=== PATIENT | male | born 1965 | race Caucasian/White ===

== ENCOUNTER 2018-07-22 08:52 | Inpatient (IN) | payer MEDICAID, OTHER ==
[~2018-07-22] VITALS: Ht 180.3 cm; Wt 66.7 kg
[2018-07-22] MEDS ORDERED: KETOROLAC 30 MG/1 ML IVPush ONE (09:30)
[2018-07-22] MEDS ORDERED: MORPHINE SULFATE 4 MG/ML, 1ML IVPush PRN (09:30)
[2018-07-22 09:32] LABS: BASOPHILS % (AUTO) 1 % (0-1); EOSINOPHILS # (AUTO) 0.58 x10^3/uL (0-0.4); EOSINOPHILS % (AUTO) 7 % (1-7); LYMPHOCYTES # (AUTO) 1.63 x10^3/uL (1-3.4); LYMPHOCYTES % (AUTO) 20 % (22-44); MD NO; MEAN CORPUSCULAR HEMOGLOBIN 29.7 pg (27.5-34.5); MEAN CORPUSCULAR HGB CONC 32.7 g/dL (33.2-36.2); MEAN CORPUSCULAR VOLUME 90.7 fL (81-97); MEAN PLATELET VOLUME 7.9 fL (7.4-10.4); MONOCYTES # (AUTO) 0.85 x10^3/uL (0.2-0.8); MONOCYTES % (AUTO) 10 % (2-9); NEUTROPHILS # (AUTO) 4.99 x10^3/uL (1.8-6.8); NEUTROPHILS % (AUTO) 61 % (42-75); PLATELET COUNT 274 x10^3/uL (130-400); RED BLOOD COUNT 4.97 x10^6/uL (4.38-5.82); RED CELL DISTRIBUTION WIDTH 13.9 % (9.4-14.8)
[2018-07-22 09:41] LABS: INTERNATIONAL NORMALIZED RATIO 0.91 (0.93-1.1); PROTHROMBIN TIME 9.6 Seconds (9.6-11.5)
[2018-07-22 09:42] LABS: ALBUMIN 3.4 g/dL (3.4-5.0); ANION GAP 3 mmol/L (5-15); CALCIUM 8.6 mg/dL (8.5-10.1); CHLORIDE 108 mmol/L (98-107); CREATININE 0.77 mg/dL (0.7-1.3)
[2018-07-22] MEDS ORDERED: KETOROLAC 30 MG/1 ML ONE (09:49)
[2018-07-22] MEDS ORDERED: MORPHINE SULFATE 4 MG/ML, 1ML ONE (09:50)
--- NOTE | 2018-07-22 10:00 | NUR ---
MEDICATED FOR PAIN.
[2018-07-22] MEDS ORDERED: OMNIPAQUE 350 MG/ML, 100ML BOTTLE ONE (10:31)
--- NOTE | 2018-07-22 10:34 | NUR ---
PT STATES NO PAIN SINCE MEDICATED FOR SAME. RESTING QUIETLY
--- NOTE | 2018-07-22 12:11 | NUR ---
NO PAIN AT THIS TIME. AWARE OF CT RESULTS AND INTENTION TO ADMIT TO HOSPITAL
[2018-07-22] MEDS ORDERED: LIDOCAINE GEL 2%, 5ML TP ONE (12:30)
--- NOTE | 2018-07-22 12:40 | NUR ---
ENT AT BEDSIDE VISUALIZING THROAT WITH LARYNGOSCOPE. PLAN OF CARE FOR BIOPSY TOMORROW DISCUSSED.
--- NOTE | 2018-07-22 12:47 | NUR ---
HOSPITALIST AT BEDSIDE
[2018-07-22 13:30] LABS: BASOPHILS # (AUTO) 0.04 x10^3/uL (0-0.1); BASOPHILS % (AUTO) 1 % (0-1); EOSINOPHILS # (AUTO) 0.48 x10^3/uL (0-0.4); EOSINOPHILS % (AUTO) 6 % (1-7); LYMPHOCYTES # (AUTO) 1.72 x10^3/uL (1-3.4); LYMPHOCYTES % (AUTO) 22 % (22-44); MD NO; MEAN CORPUSCULAR HEMOGLOBIN 30.5 pg (27.5-34.5); MEAN CORPUSCULAR VOLUME 89.8 fL (81-97); MEAN PLATELET VOLUME 7.7 fL (7.4-10.4); MONOCYTES # (AUTO) 0.65 x10^3/uL (0.2-0.8); MONOCYTES % (AUTO) 9 % (2-9); NEUTROPHILS # (AUTO) 4.78 x10^3/uL (1.8-6.8); NEUTROPHILS % (AUTO) 62 % (42-75); PLATELET COUNT 272 x10^3/uL (130-400); RED BLOOD COUNT 4.62 x10^6/uL (4.38-5.82); RED CELL DISTRIBUTION WIDTH 13.9 % (9.4-14.8)
[2018-07-22] MEDS ORDERED: ENALAPRILAT 1.25 MG/ML, 2ML IVPush PRN (13:30)
[2018-07-22] MEDS ORDERED: ONDANSETRON 2MG/ML, 2ML IVPush PRN (13:30)
--- NOTE | 2018-07-22 13:40 | NUR ---
RPT TO BERNARDINO TO
[2018-07-22] MEDS: KETOROLAC 30 MG/1 ML IVPush SCH ×2 (15:11→22:04)
[2018-07-22] MEDS: NICOTINE 21 MG/24 HR PATCH.TD24 TD SCH (15:13)
--- NOTE | 2018-07-22 15:22 | NUR ---
REC CHOPPED/THIN; Swallow precaution sheet posted at bedside Addendum: 07/23/18 at [address] Amended: Links added.
[2018-07-22] MEDS: SODIUM CHLORIDE 0.9% 1,000 ML IV SCH ×2 (16:06→22:05)
[2018-07-22 20:04] VITALS: BP 132/60
[2018-07-23 01:37] VITALS: BP 116/75
[2018-07-23] MEDS: KETOROLAC 30 MG/1 ML IVPush SCH ×4 (02:46→21:10)
[2018-07-23 05:10] LABS: CHLORIDE 109 mmol/L (98-107)
[2018-07-23 05:17] LABS: ALANINE AMINOTRANSFERASE 23 U/L (12-78); ALBUMIN 3.1 g/dL (3.4-5.0); ALKALINE PHOSPHATASE 84 U/L (45-117); ANION GAP 4 mmol/L (5-15); BILIRUBIN,TOTAL 0.5 mg/dL (0.2-1.0); CALCIUM 8.2 mg/dL (8.5-10.1); CREATININE 0.77 mg/dL (0.7-1.3); TOTAL PROTEIN 6.6 g/dL (6.4-8.2)
[2018-07-23] MEDS ORDERED: EPINEPHRINE TOPICAL SOLN 1 MG/ML, 30ML ONE (06:51)
[2018-07-23] MEDS ORDERED: FENTANYL PF 250 MCG/5ML ONE (06:56)
[2018-07-23] MEDS ORDERED: MIDAZOLAM 1 MG/ML, 2ML ONE (06:56)
[2018-07-23] MEDS ORDERED: FENTANYL PF 100 MCG/2ML IV PRN (07:30)
[2018-07-23] MEDS ORDERED: ONDANSETRON 2MG/ML, 2ML IV PRN (07:30)
[2018-07-23] MEDS ORDERED: HYDROmorphone 2 MG/ML, 1ML IVPush PRN (07:30)
[2018-07-23] MEDS ORDERED: ACETAMINOPHEN 325 MG TABLET PO PRN (07:30)
[2018-07-23] MEDS ORDERED: MEPERIDINE/PF 25MG/0.5ML IVPush PRN (07:30)
[2018-07-23] MEDS ORDERED: LABETALOL 5MG/ML, 20ML IV PRN (07:30)
[2018-07-23] MEDS ORDERED: OXYcodone 5 MG/5 ML ORAL.SOL UDC PO PRN (07:30)
[2018-07-23] MEDS ORDERED: PROPOFOL 10 MG/ML, 20ML ONE (07:34)
[2018-07-23 08:54] VITALS: BP 104/78
[2018-07-23 12:09] VITALS: BP 111/77
[2018-07-23] MEDS: NICOTINE 21 MG/24 HR PATCH.TD24 TD SCH (14:16)
[2018-07-23] MEDS: SODIUM CHLORIDE 0.9% 1,000 ML IV SCH (14:16)
[2018-07-23 19:16] VITALS: BP 124/86
[2018-07-23] MEDS ORDERED: HYDROmorphone 2 MG/ML, 1ML ONE (21:57)
[2018-07-23] MEDS: HYDROmorphone 1 MG/ML, 1ML IV PRN (22:00)
[2018-07-24 01:08] VITALS: BP 126/79
[2018-07-24] MEDS ORDERED: HYDROmorphone 2 MG/ML, 1ML ONE ×3 (02:47→10:56)
[2018-07-24] MEDS: KETOROLAC 30 MG/1 ML IVPush SCH ×2 (02:54→08:16)
[2018-07-24] MEDS: SODIUM CHLORIDE 0.9% 1,000 ML IV SCH ×2 (02:54→10:52)
[2018-07-24] MEDS: HYDROmorphone 1 MG/ML, 1ML IV PRN ×2 (02:55→10:58)
[2018-07-24 08:00] VITALS: BP 128/83
[2018-07-24] MEDS ORDERED: ACET-1757 PO (11:34)
[2018-07-24] MEDS ORDERED: IBUP-1221 PO (11:34)
[2018-07-24] MEDS ORDERED: NICO-487 TD (11:34)
[2018-07-24] MEDS ORDERED: ARIP10TA33 PO (11:35)
[2018-07-24] MEDS ORDERED: TRAZ50TA66 PO (11:35)
[2018-07-24 12:10] VITALS: BP 101/69
== END 2018-07-24 14:58 | disposition home or self-care (01) | DRG 146 ==
LOC: ED 10:05 → SUATTDRO 12:35 → EDIP 13:12 → 3NW 14:37
PROVIDERS: ADMIT Internal Medicine; ATTEND Internal Medicine
PROC: 0CJS8ZZ Inspection of Larynx, Via Natural or Artificial Opening Endoscopic (ICD-10-PCS; principal; 2018-07-22)
PROC: 0CBM8ZX Excision of Pharynx, Via Natural or Artificial Opening Endoscopic, Diagnostic (ICD-10-PCS; 2018-07-23 07:30)
DX: C01 Malignant neoplasm of base of tongue (principal); J96.00 Acute respiratory failure, unspecified whether with hypoxia or hypercapnia; R13.10 Dysphagia, unspecified; B19.20 Unspecified viral hepatitis C without hepatic coma; F20.9 Schizophrenia, unspecified; Z87.891 Personal history of nicotine dependence; Z91.14 Patient's other noncompliance with medication regimen
CPT/HCPCS: 36415; 70491; 80048; 80053; 82040; 83735; 84100; 85014; 85018; 85025; 85610; 85730; 88305; 88342; 93005; 96374; 96375; 99285; G0378; J1170; J1885; J2250; J2704; J3010; Q9967; J7030

== ENCOUNTER 2018-07-28 07:55 | Inpatient (IN) | payer MEDICAID, OTHER ==
[~2018-07-28] VITALS: Ht 177.8 cm; Wt 64.3 kg
[~2018-07-28 07:55] MED LIST: ACET-1757 PO; ARIP10TA33 PO; IBUP-1221 PO; NICO-487 TD; TRAZ50TA66 PO
--- NOTE | 2018-07-28 08:27 | NUR ---
Pt to room from [facility], ambulatory with steady gait.
--- NOTE | 2018-07-28 08:39 | NUR ---
First contact with pt. Pt c/o swelling and pain on L side of neck x8 days. Pt speaking in full sentences, resp even and unlabored, ANNETTAN.
[2018-07-28] MEDS ORDERED: SODIUM CHLORIDE FLUSH 10ML SYR IVF ONE (09:00)
--- NOTE | 2018-07-28 09:29 | NUR ---
Pt positioned for comfort in bed with pillow and warm blanket. Pt resting in bed, watching TV, NADN, denies other needs.
[2018-07-28 09:30] LABS: BASOPHILS # (AUTO) 0.07 x10^3/uL (0-0.1); BASOPHILS % (AUTO) 1 % (0-1); EOSINOPHILS # (AUTO) 0.21 x10^3/uL (0-0.4); EOSINOPHILS % (AUTO) 2 % (1-7); LYMPHOCYTES # (AUTO) 1.37 x10^3/uL (1-3.4); LYMPHOCYTES % (AUTO) 14 % (22-44); MD NO; MEAN CORPUSCULAR HEMOGLOBIN 29.9 pg (27.5-34.5); MEAN CORPUSCULAR HGB CONC 33.6 g/dL (33.2-36.2); MEAN CORPUSCULAR VOLUME 88.9 fL (81-97); MEAN PLATELET VOLUME 8.2 fL (7.4-10.4); MONOCYTES # (AUTO) 0.82 x10^3/uL (0.2-0.8); MONOCYTES % (AUTO) 8 % (2-9); NEUTROPHILS # (AUTO) 7.48 x10^3/uL (1.8-6.8); NEUTROPHILS % (AUTO) 75 % (42-75); PLATELET COUNT 253 x10^3/uL (130-400); RED BLOOD COUNT 5.05 x10^6/uL (4.38-5.82); RED CELL DISTRIBUTION WIDTH 13.8 % (9.4-14.8)
[2018-07-28 09:39] LABS: INTERNATIONAL NORMALIZED RATIO 0.95 (0.93-1.1)
[2018-07-28 09:41] LABS: ALANINE AMINOTRANSFERASE 26 U/L (12-78); ALBUMIN 3.6 g/dL (3.4-5.0); ANION GAP 5 mmol/L (5-15); CALCIUM 9.2 mg/dL (8.5-10.1); CHLORIDE 103 mmol/L (98-107); CREATININE 1.18 mg/dL (0.7-1.3)
[2018-07-28 09:43] LABS: ALKALINE PHOSPHATASE 90 U/L (45-117); BILIRUBIN,TOTAL 0.6 mg/dL (0.2-1.0)
--- NOTE | 2018-07-28 10:18 | NUR ---
Pt req medication for heartburn. Discussed with Dr. Saucedo. Orders received for pepcid IVP.
[2018-07-28] MEDS ORDERED: FAMOTIDINE 20 MG/2 ML ONE (10:19)
--- NOTE | 2018-07-28 10:23 | NUR ---
Pt medicated per MAR, denies other needs.
[2018-07-28] MEDS ORDERED: SODIUM CHLORIDE 0.9% 1,000 ML IV ONE ×2 (10:26→11:07)
--- NOTE | 2018-07-28 10:27 | NUR ---
paged dr nagy digital operations analyst for dr pizano for dr grider
[2018-07-28] MEDS ORDERED: FAMOTIDINE 20 MG/2 ML IVPush ONE (10:30)
--- NOTE | 2018-07-28 10:30 | NUR ---
Pt requesting jello to eat. Dr. Saucedo updated. Pt to remain NPO at this time. Pt updated on this.
--- NOTE | 2018-07-28 11:16 | NUR ---
Pt resting in bed with eyes closed, resp even and unlabored, NADN.
[2018-07-28] MEDS ORDERED: SODIUM CHLORIDE FLUSH 10ML SYR IVF PRN (11:30)
--- NOTE | 2018-07-28 11:49 | NUR ---
Report called to Barbara TO on oncology. Floor ready for pt transport.
--- NOTE | 2018-07-28 12:36 | NUR ---
REC NPO; plan for instrumental swallow assessment tomorrow Addendum: 07/28/18 at [address] Amended: Links added.
[2018-07-28] MEDS ORDERED: MORPHINE SULFATE 4 MG/ML, 1ML ONE (12:55)
[2018-07-28] MEDS: morphine SULFATE 10 MG/ML, 1ML IVPush PRN ×2 (12:58→13:03)
[2018-07-28] MEDS ORDERED: DOCUSATE 100 MG CAPSULE PO PRN (13:00)
[2018-07-28] MEDS ORDERED: ACETAMINOPHEN 325 MG TABLET PO PRN (13:00)
[2018-07-28 13:06] VITALS: BP 111/75
[2018-07-28] MEDS ORDERED: HYDROmorphone 2 MG/ML, 1ML ONE ×2 (14:36→20:32)
[2018-07-28] MEDS: HYDROmorphone 1 MG/ML, 1ML IV PRN ×2 (14:39→20:36)
[2018-07-28 20:28] VITALS: BP 98/67
[2018-07-28] MEDS: ENOXAPARIN 40 MG/0.4 ML SQ SCH (20:41)
[2018-07-28] MEDS: SODIUM CHLORIDE 0.9% 1,000 ML IV SCH (21:20)
[2018-07-29 01:22] VITALS: BP 115/66
[2018-07-29 01:55] LABS: BASOPHILS # (AUTO) 0.02 x10^3/uL (0-0.1); BASOPHILS % (AUTO) 0 % (0-1); EOSINOPHILS % (AUTO) 1 % (1-7); LYMPHOCYTES # (AUTO) 1.06 x10^3/uL (1-3.4); LYMPHOCYTES % (AUTO) 10 % (22-44); MD NO; MEAN CORPUSCULAR HEMOGLOBIN 30.2 pg (27.5-34.5); MEAN CORPUSCULAR HGB CONC 33.9 g/dL (33.2-36.2); MEAN CORPUSCULAR VOLUME 89.2 fL (81-97); MONOCYTES # (AUTO) 0.64 x10^3/uL (0.2-0.8); MONOCYTES % (AUTO) 6 % (2-9); NEUTROPHILS # (AUTO) 8.69 x10^3/uL (1.8-6.8); NEUTROPHILS % (AUTO) 83 % (42-75); PLATELET COUNT 234 x10^3/uL (130-400); RED BLOOD COUNT 4.49 x10^6/uL (4.38-5.82); RED CELL DISTRIBUTION WIDTH 13.8 % (9.4-14.8)
[2018-07-29] MEDS ORDERED: HYDROmorphone 2 MG/ML, 1ML ONE ×6 (02:01→22:53)
[2018-07-29] MEDS: PIPERACILLIN/TAZO/PMX 3.375GM 50 ML IV SCH ×4 (02:03→19:45)
[2018-07-29] MEDS: HYDROmorphone 1 MG/ML, 1ML IV PRN ×6 (02:03→22:58)
[2018-07-29 02:06] LABS: MICROSCOPIC NOT IND
[2018-07-29 02:07] LABS: ANION GAP 6 mmol/L (5-15); CALCIUM 8.7 mg/dL (8.5-10.1); CHLORIDE 109 mmol/L (98-107); CREATININE 0.93 mg/dL (0.7-1.3)
[2018-07-29] MEDS: SODIUM CHLORIDE 0.9% 1,000 ML IV SCH ×3 (06:12→22:58)
[2018-07-29 07:59] VITALS: BP 109/66
[2018-07-29 13:57] VITALS: BP 112/76
[2018-07-29] MEDS: ENOXAPARIN 40 MG/0.4 ML SQ SCH (19:45)
[2018-07-29 21:14] VITALS: BP 107/58
[2018-07-30] MEDS: PIPERACILLIN/TAZO/PMX 3.375GM 50 ML IV SCH ×4 (01:41→20:20)
[2018-07-30 01:43] VITALS: BP 129/65
[2018-07-30] MEDS ORDERED: HYDROmorphone 2 MG/ML, 1ML ONE ×3 (02:35→10:54)
[2018-07-30] MEDS: HYDROmorphone 1 MG/ML, 1ML IV PRN ×3 (02:37→10:59)
[2018-07-30 05:36] LABS: INTERNATIONAL NORMALIZED RATIO 1.02 (0.93-1.1); PROTHROMBIN TIME 10.7 Seconds (9.6-11.5)
[2018-07-30 05:37] LABS: BASOPHILS # (AUTO) 0.04 x10^3/uL (0-0.1); BASOPHILS % (AUTO) 1 % (0-1); EOSINOPHILS # (AUTO) 0.26 x10^3/uL (0-0.4); EOSINOPHILS % (AUTO) 3 % (1-7); LYMPHOCYTES # (AUTO) 1.43 x10^3/uL (1-3.4); LYMPHOCYTES % (AUTO) 19 % (22-44); MD NO; MEAN CORPUSCULAR HEMOGLOBIN 30.5 pg (27.5-34.5); MEAN CORPUSCULAR HGB CONC 33.9 g/dL (33.2-36.2); MEAN CORPUSCULAR VOLUME 89.9 fL (81-97); MEAN PLATELET VOLUME 8.2 fL (7.4-10.4); MONOCYTES # (AUTO) 0.67 x10^3/uL (0.2-0.8); MONOCYTES % (AUTO) 9 % (2-9); NEUTROPHILS # (AUTO) 5.31 x10^3/uL (1.8-6.8); NEUTROPHILS % (AUTO) 69 % (42-75); PLATELET COUNT 196 x10^3/uL (130-400); RED BLOOD COUNT 4.22 x10^6/uL (4.38-5.82); RED CELL DISTRIBUTION WIDTH 13.6 % (9.4-14.8)
[2018-07-30 05:41] LABS: ALBUMIN 2.9 g/dL (3.4-5.0); ANION GAP 6 mmol/L (5-15); CALCIUM 8.4 mg/dL (8.5-10.1); CHLORIDE 108 mmol/L (98-107)
[2018-07-30 06:00] LABS: ALANINE AMINOTRANSFERASE 20 U/L (12-78); ALKALINE PHOSPHATASE 67 U/L (45-117); BILIRUBIN,TOTAL 1.4 mg/dL (0.2-1.0); CREATININE 0.96 mg/dL (0.7-1.3); TOTAL PROTEIN 6.7 g/dL (6.4-8.2)
[2018-07-30 07:19] VITALS: BP 105/61
[2018-07-30] MEDS: SODIUM CHLORIDE 0.9% 1,000 ML IV SCH ×3 (09:00→20:20)
[2018-07-30] MEDS ORDERED: CEFAZOLIN 1,000 MG ONE (09:10)
[2018-07-30] MEDS ORDERED: PROPOFOL 10 MG/ML, 50ML ONE (09:10)
[2018-07-30] MEDS: OXYcodone/APAP 10/325MG TABLET PO PRN ×3 (12:43→21:47)
[2018-07-30 13:25] VITALS: BP 104/67
--- NOTE | 2018-07-30 15:00 | NUR ---
Jevity 1.5 goal: 55 ml/hr Addendum: 07/30/18 at [address] Amended: Links added.
[2018-07-30] MEDS ORDERED: GADOBUTROL 7.5 MMOL/7.5 ML PFS ONE (16:42)
[2018-07-30 19:38] VITALS: BP 112/63
[2018-07-30] MEDS: ENOXAPARIN 40 MG/0.4 ML SQ SCH (20:20)
[2018-07-31 00:25] VITALS: BP 117/61
[2018-07-31] MEDS: PIPERACILLIN/TAZO/PMX 3.375GM 50 ML IV SCH ×4 (02:12→19:44)
[2018-07-31] MEDS: OXYcodone/APAP 10/325MG TABLET PO PRN (02:13)
[2018-07-31] MEDS: SODIUM CHLORIDE 0.9% 1,000 ML IV SCH ×3 (02:13→23:00)
[2018-07-31] MEDS: morphine SULFATE 10 MG/ML, 1ML IVPush PRN ×6 (03:27→21:03)
[2018-07-31] MEDS ORDERED: morphine SULFATE 10 MG/ML, 1ML IVPush PRN (03:30)
[2018-07-31 06:45] VITALS: BP 111/68
[2018-07-31 14:10] VITALS: BP 110/69
[2018-07-31 18:51] VITALS: BP 127/74
[2018-07-31] MEDS: ENOXAPARIN 40 MG/0.4 ML SQ SCH (19:44)
[2018-08-01] MEDS: morphine SULFATE 10 MG/ML, 1ML IVPush PRN ×5 (00:07→19:57)
[2018-08-01] MEDS: SODIUM CHLORIDE 0.9% 1,000 ML IV SCH ×3 (00:29→18:11)
[2018-08-01 00:45] VITALS: BP 116/79
[2018-08-01] MEDS: PIPERACILLIN/TAZO/PMX 3.375GM 50 ML IV SCH ×2 (02:00→08:18)
[2018-08-01 06:57] VITALS: BP 111/72
[2018-08-01] MEDS: OXYcodone/APAP 10/325MG TABLET PO PRN ×2 (08:18→21:19)
[2018-08-01] MEDS ORDERED: methylPREDNISolone SOD SUCC 125 MG/2 ML ONE (10:27)
[2018-08-01] MEDS ORDERED: methylPREDNISolone SOD SUCC 125 MG/2 ML IVPush ONE (10:30)
[2018-08-01] MEDS ORDERED: ALBUTEROL/IPRATROPIUM 2.5MG/0.5MG, 3 ML NPPB SCH (11:00)
[2018-08-01 11:44] VITALS: BP 111/66
[2018-08-01] MEDS ORDERED: ALBUTEROL/IPRATROPIUM 2.5MG/0.5MG, 3 ML NPPB PRN (17:30)
[2018-08-01] MEDS: AMOXICILLIN/CLAV 875-125MG TABLET PO SCH (18:11)
[2018-08-01 19:18] VITALS: BP 124/85
[2018-08-01] MEDS: ENOXAPARIN 40 MG/0.4 ML SQ SCH (19:57)
[2018-08-01] MEDS ORDERED: OMNIPAQUE 350 MG/ML, 100ML BOTTLE ONE (22:09)
[2018-08-02] MEDS: morphine SULFATE 10 MG/ML, 1ML IVPush PRN ×2 (00:14→11:04)
[2018-08-02 00:57] VITALS: BP 113/79
[2018-08-02] MEDS: OXYcodone/APAP 10/325MG TABLET PO PRN (03:09)
[2018-08-02] MEDS: AMOXICILLIN/CLAV 875-125MG TABLET PO SCH (04:02)
[2018-08-02] MEDS: SODIUM CHLORIDE 0.9% 1,000 ML IV SCH ×2 (04:02→11:00)
[2018-08-02 05:18] LABS: BASOPHILS # (AUTO) 0.04 x10^3/uL (0-0.1); BASOPHILS % (AUTO) 1 % (0-1); EOSINOPHILS # (AUTO) 0.42 x10^3/uL (0-0.4); EOSINOPHILS % (AUTO) 7 % (1-7); LYMPHOCYTES # (AUTO) 1.16 x10^3/uL (1-3.4); LYMPHOCYTES % (AUTO) 18 % (22-44); MD NO; MEAN CORPUSCULAR HEMOGLOBIN 29.9 pg (27.5-34.5); MEAN CORPUSCULAR HGB CONC 33.3 g/dL (33.2-36.2); MEAN CORPUSCULAR VOLUME 89.9 fL (81-97); MEAN PLATELET VOLUME 8.7 fL (7.4-10.4); MONOCYTES # (AUTO) 0.58 x10^3/uL (0.2-0.8); MONOCYTES % (AUTO) 9 % (2-9); NEUTROPHILS # (AUTO) 4.29 x10^3/uL (1.8-6.8); NEUTROPHILS % (AUTO) 66 % (42-75); PLATELET COUNT 209 x10^3/uL (130-400); RED CELL DISTRIBUTION WIDTH 13.5 % (9.4-14.8)
[2018-08-02 05:40] LABS: ANION GAP 6 mmol/L (5-15); CALCIUM 7.9 mg/dL (8.5-10.1); CHLORIDE 109 mmol/L (98-107); CREATININE 0.65 mg/dL (0.7-1.3)
[2018-08-02 07:23] VITALS: BP 119/73
[2018-08-02 13:22] VITALS: BP 138/73
[2018-08-02] MEDS ORDERED: OXYC-432 PO (14:23)
[2018-08-02] MEDS ORDERED: DOCU-131 PO (14:23)
[2018-08-02] MEDS ORDERED: AMOX1TAB12 PO (14:23)
== END 2018-08-02 14:34 | disposition home or self-care (01) | DRG 146 ==
LOC: ED 09:00 → 3NW 11:49
PROVIDERS: ADMIT Internal Medicine Infectious Disease; ATTEND Internal Medicine Infectious Disease
PROC: 0DH63UZ Insertion of Feeding Device into Stomach, Percutaneous Approach (ICD-10-PCS; principal; 2018-07-30 09:00)
DX: C10.9 Malignant neoplasm of oropharynx, unspecified (principal); E43 Unspecified severe protein-calorie malnutrition; R13.12 Dysphagia, oropharyngeal phase; B18.2 Chronic viral hepatitis C; M19.90 Unspecified osteoarthritis, unspecified site; F17.200 Nicotine dependence, unspecified, uncomplicated; F20.9 Schizophrenia, unspecified; K14.9 Disease of tongue, unspecified; Z51.5 Encounter for palliative care; Z59.0 Homelessness; Z91.14 Patient's other noncompliance with medication regimen; Z85.818 Personal history of malignant neoplasm of other sites of lip, oral cavity, and pharynx; Z68.20 Body mass index [BMI] 20.0-20.9, adult
CPT/HCPCS: 36415; 74230; 87806; 99285; J3490; 70543; 71045; 71046; 71275; 76705; 80048; 80053; 80074; 81003; 83735; 84100; 85025; 85610; 85730; 86480; 87040; 87070; 87205; 87521; 87522; 93005; 96374; A9585; B4087; G0378; J0690; J1170; J1650; J2543; J2704; Q9967; G0475; J2270; J7030

== ENCOUNTER 2018-08-11 18:35 | Emergency (ER) | payer MEDICAID ==
[~2018-08-11] VITALS: Ht 180.3 cm; Wt 61.1 kg
[~2018-08-11 18:35] MED LIST changes: +AMOX1TAB12 PO; +DOCU-131 PO; +OXYC-432 PO
[2018-08-11] MEDS ORDERED: HYDROmorphone 2 MG/ML, 1ML IM ONE (19:30)
[2018-08-11] MEDS ORDERED: HYDROmorphone 2 MG/ML, 1ML ONE (19:37)
--- NOTE | 2018-08-11 19:46 | NUR ---
THIS IS A 52 YO MALE WHO PRESENTS TO THE ER C/O PAIN AND DIFFICULTY BREATHING. PT HAS A PALPABLE MASS TO THE LEFT SIDE OF HIS THROAT. PT REPORTS HE WAS DX'D WITH THROAT CA APPROX 1 WEEK AGO. PT IS CURRENTLY MAINTAINING HIS AIRWAY AND IS ABLE TO MANAGE HIS SECRETIONS. PT IS NOT ACTIVELY DROOLING. PT ABLE TO SPEAK IN FULL 5-7 WORD SENTENCES BUT RN DOES NOTE A MUFFLED VOICE. PT AO X 4. SKIN PWD. RESP EVEN AND EQUAL. CALL LIGHT WITHIN REACH. WILL CONT TO MONITOR PT.
--- NOTE | 2018-08-11 20:10 | NUR ---
ERMD MARYSOL AT BEDSIDE FOR EVAL.
--- NOTE | 2018-08-11 20:30 | NUR ---
PT CURRENTLY SLEEPING ON GURNEY. NAD NOTED. SKIN PWD. RESP EVEN AND EQAUL. CALL LIGHT WITHIN REACH. WILL CONT TO MONITOR PT.
[2018-08-11 21:02] VITALS: BP 117/73
== END 2018-08-11 21:06 | disposition home or self-care (01) ==
LOC: ED 19:15
DX: C32.9 Malignant neoplasm of larynx, unspecified (principal); Z72.9 Problem related to lifestyle, unspecified; M19.90 Unspecified osteoarthritis, unspecified site; Z86.19 Personal history of other infectious and parasitic diseases
CPT/HCPCS: 96372; 99283; J1170

== ENCOUNTER 2018-11-08 08:10 | Outpatient (CLI) | payer MEDICAID ==
[~2018-11-08 08:10] MED LIST changes: +ACET325C5 PO; +ALBU18HF INH; +AMLO10TA8 PO; +CITA20TA6 PO; +CLOP75TA PO; +FLUT16SP24 NAS; +GABA-826 PO; +HYDR-3240 PO; +INSU100C5 SQ-INSULIN; +LACT1TAB13 PO; +LATA7.5D OP; +LIDO15SO3 MM; +LIDO5CRE6 TP; +LIDO700A20 TD; +MUPI22OI2 TP; +OMEP-110 PO; +OXYC5SOL8 PO; +PANT40TA5 PO; +POLY17PO5 PO; +TIMO5DRO37 OP; +TRAM50TA2 PO; +UMEC62.5 INH; +WARF1TAB PO-COUM
== END 2018-11-08 23:59 | disposition home or self-care (01) ==
LOC: ROC 08:10
PROVIDERS: ATTEND Radiology Radiation Oncology
DX: Z02.9 Encounter for administrative examinations, unspecified (principal)

== ENCOUNTER 2019-03-06 13:29 | Inpatient (IN) | payer MEDICAID ==
[~2019-03-06] VITALS: Ht 180.3 cm; Wt 59.6 kg
[~2019-03-06 13:29] MED LIST changes: -ACET-1757 PO; +ACET-2065 PO; -ACET325C5 PO; +ACET325C6 PO
[2019-03-06] MEDS ORDERED: SODIUM CHLORIDE FLUSH 10ML SYR IVF ONE (14:00)
[2019-03-06 14:27] LABS: MEAN CORPUSCULAR HGB CONC 32.6 g/dL (33.2-36.2); MEAN CORPUSCULAR VOLUME 92.1 fL (81-97); MEAN PLATELET VOLUME 7.2 fL (7.4-10.4); PLATELET COUNT 428 x10^3/uL (130-400); RED BLOOD COUNT 3.23 x10^6/uL (4.38-5.82); RED CELL DISTRIBUTION WIDTH 14.2 % (9.4-14.8)
--- NOTE | 2019-03-06 14:30 | NUR ---
PATIENT ABOUT TO BE TRANPORTED TO CT SCAN. pATIENT NOTED TO VOMITING BRIGHT RED BLOOD. PATIENT FILLED UP 2 VOMIT BAGS WITH BRIGHT RED BLOOD. PATIENT POSITIONED ON SIDE.PROVIDED WITH DALIA HELP CALLED TO ROOM VITALS UNCHANGED- 112, 114/76 18GA PIV PLACED
[2019-03-06 14:34] LABS: ALANINE AMINOTRANSFERASE 13 U/L (12-78); ALBUMIN 2.7 g/dL (3.4-5.0); ANION GAP 6 mmol/L (5-15); CALCIUM 8.9 mg/dL (8.5-10.1); CHLORIDE 99 mmol/L (98-107); CREATININE 1.14 mg/dL (0.7-1.3)
[2019-03-06 14:36] LABS: ALKALINE PHOSPHATASE 91 U/L (45-117); BILIRUBIN,TOTAL 0.3 mg/dL (0.2-1.0); TOTAL PROTEIN 7.3 g/dL (6.4-8.2)
--- NOTE | 2019-03-06 14:40 | NUR ---
TO CT SCAN ON THE MONITOR WITH RN SUPERVISION (HUEY TO) REPORT TO JACKSON TO
--- NOTE | 2019-03-06 14:52 | NUR ---
RECEIVED REPORT FROM ZULEIKA BIRCH. PT CURRENTLY IN CT W/ ZULEIKA ARZATE.
[2019-03-06] MEDS ORDERED: SODIUM CHLORIDE 0.9% 1,000ML IVBOLUS ONE (15:00)
[2019-03-06] MEDS ORDERED: OMNIPAQUE 350 MG/ML, 150 ML BOTTLE ONE (15:02)
[2019-03-06 15:03] LABS: MD YES
[2019-03-06 15:04] LABS: BAND#(MANUAL) 1.71 x10^3/uL; BANDS%(MANUAL) 10 % (0-7); LYMPH#(MANUAL) 0.34 x10^3/uL (1-3.4); LYMPHS% (MANUAL) 2 % (22-44); MONOS#(MANUAL) 0.68 x10^3/uL (0.3-2.7); MONOS% (MANUAL) 4 % (2-9); SEG#(MANUAL) 14.36 x10^3/uL (1.8-6.8); SEGS% (MANUAL) 84 % (42-75)
[2019-03-06 15:05] LABS: <PLATELET ESTIMATE> INCREASED; SMALL PLATELETS 1+
[2019-03-06 15:06] LABS: <RBC MORPHOLOGY> NORMAL
--- NOTE | 2019-03-06 15:23 | NUR ---
PT STATES HE HAS HX NECK CANCER AND AWOKE THIS MORNING W/ DIFFICULTY SWALLOWING. PT STATES HE CAME TO ED FOR THAT. PT WAS TAKEN TO ROOM AND BEGAN COUGHING UP A LOT OF BLOOD. PT STATES HE DID NOT HAVE BLOOD IN HIS MOUTH BEFORE ARRIVING TO ED. PT STATES HE IS CURRENTLY NOT TAKING ANY OF HIS MEDICATIONS AND IS NOT ON CHEMOTHERAPY/RADIATION. UNKNOWN WHY. PT RESTING ON GURNEY. MONITORS APPLIED. COUGHING SUBSIDED. MINIMAL BLOOD AT THIS TIME. SUCTION AT BEDSIDE. DALIA PROVIDED FOR PT.
[2019-03-06] MEDS ORDERED: ONDANSETRON 2MG/ML, 2ML IVPush ONE (15:30)
[2019-03-06] MEDS ORDERED: ONDANSETRON 2MG/ML, 2ML ONE (15:32)
[2019-03-06] MEDS ORDERED: HYDROmorphone 1 MG/ML, 1ML VIAL ONE ×2 (15:32→17:38)
[2019-03-06] MEDS: HYDROmorphone 2 MG/ML, 1ML IVPush PRN ×2 (15:34→17:40)
--- NOTE | 2019-03-06 16:07 | NUR ---
PT RESTING ON GURNEY. NADN. NAYLOR.
[2019-03-06] MEDS ORDERED: SODIUM CHLORIDE 0.9% 1,000 ML IV ONE (16:21)
[2019-03-06] MEDS ORDERED: CEFTRIAXONE PMX 1GM/50ML 50 ML IVPB ONE (16:30)
[2019-03-06] MEDS ORDERED: CEFTRIAXONE PMX 1GM/50ML 50 ML ONE (16:30)
[2019-03-06] MEDS ORDERED: CLINDAMYCIN PMX 600MG/50ML 50 ML IV ONE (17:00)
--- NOTE | 2019-03-06 17:13 | NUR ---
REPORT GIVEN TO MANUELA MULLEN RN. ALL QUESTIONS ANSWERED. AWAITING PT TRANSPORT.
[2019-03-06] MEDS ORDERED: CLINDAMYCIN PMX 600MG/50ML 50 ML ONE (17:33)
--- NOTE | 2019-03-06 18:18 | NUR ---
REPORT GIVEN TO BRIGETTE, RECEIVING RN IN THE ICU. PT RESTING ON GURNEY. WILL TRANSPORT PT TO ICU SHORTLY.
--- NOTE | 2019-03-06 18:25 | NUR ---
ENT DR. NARANJO AT BEDSIDE TO DISCUSS POC W/ PT.
--- NOTE | 2019-03-06 18:50 | NUR ---
Pt bedside report from Larisa fernando. This rn to assume care. Pt report called to [facility] from day shift rn. Awaiting hospitalist orders for tx to [facility].
--- NOTE | 2019-03-06 18:50 | NUR ---
REPORT GIVEN TO RACHID TOM RN.
[2019-03-06] MEDS ORDERED: SODIUM CHLORIDE 0.9% 1,000 ML IV SCH (19:23)
--- NOTE | 2019-03-06 19:27 | NUR ---
Pt resting comfortably on gurney. Rr even and unlabored. Vss. No immediate needs. Awaiting hospitalist orders to tx.
[2019-03-06] MEDS ORDERED: OXYcodone IR 5MG TABLET PO PRN (19:30)
[2019-03-06] MEDS ORDERED: POLYETHYLENE GLYCOL 17 GM PACKET PO PRN (19:30)
[2019-03-06] MEDS ORDERED: hydrALAzine 20 MG/ML, 1ML IVPush PRN (19:30)
[2019-03-06] MEDS ORDERED: BISACODYL 10 MG SUPP PR PRN (19:30)
[2019-03-06] MEDS ORDERED: DOCUSATE 100 MG CAPSULE PO PRN (19:30)
[2019-03-06] MEDS ORDERED: ONDANSETRON 2MG/ML, 2ML IVPush PRN (19:30)
[2019-03-06] MEDS ORDERED: ONDANSETRON ODT 4 MG PO PRN (19:30)
[2019-03-06] MEDS ORDERED: PROMETHAZINE 25 MG/ML, 1ML IM PRN (19:30)
[2019-03-06] MEDS ORDERED: morphine SULFATE 10 MG/ML, 1ML IVPush PRN (19:30)
[2019-03-06 19:58] LABS: FREE T4 (FREE THYROXINE) 0.94 ng/dL (0.76-1.46)
[2019-03-06] MEDS: FAMOTIDINE 20 MG/2 ML IVPush SCH (20:45)
[2019-03-06 20:46] LABS: HEMOGLOBIN A1C 5.5 % (4.2-6.3)
[2019-03-06] MEDS: PIPERACILLIN/TAZO/PMX 3.375GM 50 ML IV SCH (21:34)
[2019-03-06 22:24] VITALS: BP 121/75
[2019-03-06 23:54] VITALS: BP 102/72
[2019-03-07 00:18] VITALS: BP 106/75
[2019-03-07 01:20] VITALS: BP 112/62
[2019-03-07 02:22] VITALS: BP 124/67
[2019-03-07] MEDS: PIPERACILLIN/TAZO/PMX 3.375GM 50 ML IV SCH (02:25)
[2019-03-07 04:30] LABS: MEAN CORPUSCULAR HEMOGLOBIN 31.1 pg (27.5-34.5); MEAN CORPUSCULAR HGB CONC 33.2 g/dL (33.2-36.2); MEAN CORPUSCULAR VOLUME 93.7 fL (81-97); MEAN PLATELET VOLUME 7.3 fL (7.4-10.4); PLATELET COUNT 370 x10^3/uL (130-400); RED BLOOD COUNT 2.76 x10^6/uL (4.38-5.82); RED CELL DISTRIBUTION WIDTH 14.1 % (9.4-14.8)
[2019-03-07 04:38] LABS: INTERNATIONAL NORMALIZED RATIO 1.02 (0.93-1.1); PROTHROMBIN TIME 10.7 Seconds (9.6-11.5)
[2019-03-07 04:42] LABS: ALANINE AMINOTRANSFERASE 21 U/L (12-78); ALBUMIN 2.5 g/dL (3.4-5.0); ANION GAP 3 mmol/L (5-15); CALCIUM 8.5 mg/dL (8.5-10.1); CHLORIDE 104 mmol/L (98-107)
[2019-03-07 04:45] LABS: ALKALINE PHOSPHATASE 86 U/L (45-117); BILIRUBIN,TOTAL 0.4 mg/dL (0.2-1.0); CHOL/HDL RATIO 3.7; CHOLESTEROL, TOTAL 112 mg/dL (140-239); CREATININE 0.96 mg/dL (0.7-1.3); HDL CHOL % 27 % (26-37); HDL CHOLESTEROL (DIRECT) 30 mg/dL (40-60); LDL CHOLESTEROL,CALCULATED 61 mg/dL (54-169); TOTAL PROTEIN 6.7 g/dL (6.4-8.2); TRIGLYCERIDES 104 mg/dL (50-200); VLDL CHOLESTEROL 21 mg/dL (0-25)
[2019-03-07 04:48] LABS: MD YES
[2019-03-07 04:49] LABS: ANISOCYTOSIS 1+; BAND#(MANUAL) 0.15 x10^3/uL; BANDS%(MANUAL) 1 % (0-7); LYMPH#(MANUAL) 0.44 x10^3/uL (1-3.4); LYMPHS% (MANUAL) 3 % (22-44); MONOS#(MANUAL) 1.02 x10^3/uL (0.3-2.7); MONOS% (MANUAL) 7 % (2-9); SEG#(MANUAL) 12.91 x10^3/uL (1.8-6.8); SEGS% (MANUAL) 89 % (42-75)
[2019-03-07 04:50] LABS: <PLATELET ESTIMATE> ADEQUATE; <PLT MORPHOLOGY> NORMAL PLT MORPH; POLYCHROMASIA 1+
[2019-03-07] MEDS: SODIUM CHLORIDE 0.9% 1,000 ML IV SCH (08:02)
[2019-03-07] MEDS: AMPICILLIN/SULBACTAM 3 GM in SODIUM CHLORIDE 0.9% 100 ML IV SCH ×3 (08:02→20:43)
[2019-03-07] MEDS ORDERED: LIDOCAINE 1%-EPI 1:100K, 20ML ONE (10:00)
[2019-03-07] MEDS ORDERED: FENTANYL PF 100 MCG/2ML ONE (10:12)
[2019-03-07] MEDS ORDERED: MIDAZOLAM 1 MG/ML, 2ML ONE (10:12)
[2019-03-07] MEDS ORDERED: PROPOFOL 10 MG/ML, 20ML ONE (10:13)
[2019-03-07] MEDS ORDERED: DEXAMETHASONE 4 MG/ML, 1ML ONE (10:15)
--- NOTE | 2019-03-07 12:04 | NUR ---
TF Goal recs: Initial goal - Jevity 1.2 @ 35 ml/hour (begin at low rate and advance very slowly, pt at high risk for refeeding risk), Once no longer at refeeding risk, goal rate is 65 ml/hour.
[2019-03-07] MEDS ORDERED: MORPHINE SULFATE 4 MG/ML, 1ML ONE (12:10)
[2019-03-07] MEDS: FAMOTIDINE 20 MG/2 ML IVPush SCH ×2 (13:53→20:43)
[2019-03-07] MEDS: MORPHINE SULFATE 4 MG/ML, 1ML IVPush PRN (20:52)
[2019-03-08] MEDS: SODIUM CHLORIDE 0.9% 1,000 ML IV SCH (01:24)
[2019-03-08] MEDS: AMPICILLIN/SULBACTAM 3 GM in SODIUM CHLORIDE 0.9% 100 ML IV SCH ×4 (02:40→19:36)
[2019-03-08] MEDS: MORPHINE SULFATE 4 MG/ML, 1ML IVPush PRN ×4 (03:11→20:23)
[2019-03-08 04:13] LABS: BASOPHILS # (AUTO) 0.05 x10^3/uL (0-0.1); BASOPHILS % (AUTO) 0 % (0-1); EOSINOPHILS # (AUTO) 0.15 x10^3/uL (0-0.4); EOSINOPHILS % (AUTO) 1 % (1-7); LYMPHOCYTES # (AUTO) 0.55 x10^3/uL (1-3.4); LYMPHOCYTES % (AUTO) 4 % (22-44); MD NO; MEAN CORPUSCULAR HEMOGLOBIN 30.7 pg (27.5-34.5); MEAN CORPUSCULAR HGB CONC 32.6 g/dL (33.2-36.2); MEAN PLATELET VOLUME 7.4 fL (7.4-10.4); MONOCYTES # (AUTO) 0.53 x10^3/uL (0.2-0.8); MONOCYTES % (AUTO) 4 % (2-9); NEUTROPHILS # (AUTO) 13.69 x10^3/uL (1.8-6.8); NEUTROPHILS % (AUTO) 91 % (42-75); PLATELET COUNT 374 x10^3/uL (130-400); RED BLOOD COUNT 2.77 x10^6/uL (4.38-5.82); RED CELL DISTRIBUTION WIDTH 14.2 % (9.4-14.8)
[2019-03-08] MEDS: FAMOTIDINE 20 MG/2 ML IVPush SCH ×2 (09:43→20:53)
[2019-03-08] MEDS ORDERED: LIDOCAINE 1%, 20ML ONE (14:46)
[2019-03-08] MEDS ORDERED: FLUMAZENIL 0.1 MG/1 ML, 5ML ONE (15:28)
[2019-03-08] MEDS ORDERED: NALOXONE 1 MG/ML, 2ML ONE (15:28)
[2019-03-08] MEDS ORDERED: FENTANYL PF 100 MCG/2ML ONE (15:28)
[2019-03-08] MEDS ORDERED: MIDAZOLAM 1 MG/ML, 5ML ONE (15:28)
[2019-03-08] MEDS ORDERED: DIPHENHYDRAMINE 50 MG/ML, 1ML ONE (16:54)
[2019-03-08] MEDS ORDERED: VISIPAQUE 320MG/ML, 50ML BOTTLE ONE (17:57)
[2019-03-08] MEDS: D5%-0.9% NACL 1,000 ML IV SCH (19:29)
[2019-03-08] MEDS ORDERED: CYCLOBENZAPRINE 10 MG TABLET ONE (20:40)
[2019-03-08] MEDS ORDERED: HYDROmorphone 2 MG/ML, 1ML ONE (22:02)
[2019-03-08] MEDS: HYDROmorphone 2 MG/ML, 1ML IVPush PRN (22:05)
[2019-03-09] MEDS: AMPICILLIN/SULBACTAM 3 GM in SODIUM CHLORIDE 0.9% 100 ML IV SCH ×4 (01:14→19:42)
[2019-03-09] MEDS: HYDROmorphone 2 MG/ML, 1ML IVPush PRN ×2 (03:52→09:37)
[2019-03-09] MEDS: FAMOTIDINE 20 MG/2 ML IVPush SCH ×2 (09:44→20:55)
[2019-03-09] MEDS: D5%-0.9% NACL 1,000 ML IV SCH ×2 (09:44→23:59)
[2019-03-09] MEDS: MORPHINE SULFATE 4 MG/ML, 1ML IVPush PRN ×2 (14:18→19:40)
[2019-03-10] MEDS: MORPHINE SULFATE 4 MG/ML, 1ML IVPush PRN ×4 (00:43→13:26)
[2019-03-10] MEDS: AMPICILLIN/SULBACTAM 3 GM in SODIUM CHLORIDE 0.9% 100 ML IV SCH ×4 (01:27→20:05)
[2019-03-10 04:00] VITALS: BP 147/88
[2019-03-10 04:33] LABS: ANION GAP 3 mmol/L (5-15); CALCIUM 7.9 mg/dL (8.5-10.1); CHLORIDE 103 mmol/L (98-107); CREATININE 0.63 mg/dL (0.7-1.3)
[2019-03-10 04:35] LABS: BASOPHILS # (AUTO) 0.02 x10^3/uL (0-0.1); BASOPHILS % (AUTO) 0 % (0-1); EOSINOPHILS # (AUTO) 0.02 x10^3/uL (0-0.4); EOSINOPHILS % (AUTO) 0 % (1-7); LYMPHOCYTES # (AUTO) 0.26 x10^3/uL (1-3.4); LYMPHOCYTES % (AUTO) 2 % (22-44); MD NO; MEAN CORPUSCULAR HGB CONC 33.5 g/dL (33.2-36.2); MEAN CORPUSCULAR VOLUME 92.6 fL (81-97); MEAN PLATELET VOLUME 7.1 fL (7.4-10.4); MONOCYTES # (AUTO) 0.47 x10^3/uL (0.2-0.8); MONOCYTES % (AUTO) 4 % (2-9); NEUTROPHILS # (AUTO) 11.17 x10^3/uL (1.8-6.8); NEUTROPHILS % (AUTO) 94 % (42-75); PLATELET COUNT 336 x10^3/uL (130-400); RED BLOOD COUNT 2.67 x10^6/uL (4.38-5.82)
[2019-03-10] MEDS ORDERED: POTASSIUM CHLORIDE 40 MEQ in SODIUM CHLORIDE 0.9% 500 ML IV ONE (07:30)
[2019-03-10] MEDS: FAMOTIDINE 20 MG/2 ML IVPush SCH (08:44)
--- NOTE | 2019-03-10 13:23 | NUR ---
FULL LIQUID NTL -PMSV MUST BE IN PLACE FOR ALL PO INTAKE -CHIN TUCK -UP AT 90 DEGREES -NO STRAWS Addendum: 03/10/19 at [address] Amended: Links added.
[2019-03-10] MEDS ORDERED: PVN PER PHARMACY MC PRN (14:30)
[2019-03-10] MEDS: HYDROmorphone 2 MG/ML, 1ML IVPush PRN ×2 (14:49→20:49)
[2019-03-10 16:00] VITALS: BP 107/67
[2019-03-10] MEDS ORDERED: [UNRECOGNIZED DRUG - OTHER] IV SCH (17:00)
[2019-03-10] MEDS ORDERED: AMINO ACID 10% IV SCH (17:00)
[2019-03-10] MEDS ORDERED: SMOF TPN IV SCH (17:00)
[2019-03-10] MEDS ORDERED: DEXTROSE 50%, 50ML SYRINGE IVPush PRN (17:00)
[2019-03-10] MEDS ORDERED: DEXTROSE 70% IV SCH (17:00)
[2019-03-10] MEDS ORDERED: FAT EMUL IV SCH (17:00)
[2019-03-10] MEDS ORDERED: DEXTROSE 10% 500 ML IV PRN (17:00)
[2019-03-10] MEDS: FILTER, DISP 1.2 MICRON FOR TPN/PVN IV PRN (20:15)
[2019-03-10] MEDS: INSULIN REGULAR LOW DOSE Q6H X 48HRS SQ-INSULIN SCH (20:47)
[2019-03-11] MEDS: AMPICILLIN/SULBACTAM 3 GM in SODIUM CHLORIDE 0.9% 100 ML IV SCH ×4 (01:43→20:15)
[2019-03-11] MEDS: HYDROmorphone 2 MG/ML, 1ML IVPush PRN ×5 (01:49→20:16)
[2019-03-11] MEDS: INSULIN REGULAR LOW DOSE Q6H X 48HRS SQ-INSULIN SCH ×4 (03:00→21:00)
[2019-03-11 04:00] VITALS: BP 115/76
[2019-03-11 05:39] LABS: CHLORIDE 108 mmol/L (98-107)
[2019-03-11 05:48] LABS: ALANINE AMINOTRANSFERASE 8 U/L (12-78); ALBUMIN 1.9 g/dL (3.4-5.0); ALKALINE PHOSPHATASE 61 U/L (45-117); ANION GAP 3 mmol/L (5-15); BILIRUBIN,TOTAL 0.3 mg/dL (0.2-1.0); CREATININE 0.57 mg/dL (0.7-1.3); PREALBUMIN 5.1 mg/dL (20.0-40.0); TOTAL PROTEIN 5.8 g/dL (6.4-8.2); TRIGLYCERIDES 86 mg/dL (50-200)
--- NOTE | 2019-03-11 10:00 | NUR ---
NPO with PVN single ice chips with staff only oral care Addendum: 03/11/19 at [address] Amended: Links added.
[2019-03-11] MEDS ORDERED: AMINO ACID 10% IV SCH (17:00)
[2019-03-11] MEDS ORDERED: [UNRECOGNIZED DRUG - OTHER] IV SCH (17:00)
[2019-03-11] MEDS ORDERED: DEXTROSE 70% IV SCH (17:00)
[2019-03-11] MEDS ORDERED: SMOF TPN IV SCH (17:00)
[2019-03-11] MEDS ORDERED: FAT EMUL IV SCH (17:00)
[2019-03-11 17:21] VITALS: BP 109/62
[2019-03-11] MEDS: FILTER, DISP 1.2 MICRON FOR TPN/PVN IV PRN (20:16)
[2019-03-12] MEDS: HYDROmorphone 2 MG/ML, 1ML IVPush PRN ×4 (00:39→23:45)
[2019-03-12] MEDS: AMPICILLIN/SULBACTAM 3 GM in SODIUM CHLORIDE 0.9% 100 ML IV SCH ×4 (00:39→20:15)
[2019-03-12] MEDS: INSULIN REGULAR LOW DOSE Q6H X 48HRS SQ-INSULIN SCH (03:00)
[2019-03-12 04:00] VITALS: BP 117/70
[2019-03-12 04:29] LABS: ANION GAP 2 mmol/L (5-15); CALCIUM 7.8 mg/dL (8.5-10.1); CHLORIDE 101 mmol/L (98-107); CREATININE 0.52 mg/dL (0.7-1.3)
[2019-03-12] MEDS ORDERED: LIDOCAINE 2% VISCOUS 15 ML UDC MM PRN (08:30)
[2019-03-12] MEDS: DEXAMETHASONE 4 MG/ML, 1ML IV SCH ×3 (10:31→20:15)
[2019-03-12] MEDS: METHADONE INTENSOL 10 MG/ML ORAL CONC PO SCH ×3 (10:31→20:15)
--- NOTE | 2019-03-12 15:05 | NUR ---
FULL LIQUID NTL PMSV must be in place with all PO No straws Up at 90 Addendum: 03/12/19 at [address] Amended: Links added.
[2019-03-12 16:10] VITALS: BP 126/88
[2019-03-12] MEDS ORDERED: DEXTROSE 70% IV SCH (17:00)
[2019-03-12] MEDS ORDERED: AMINO ACID 10% IV SCH (17:00)
[2019-03-12] MEDS ORDERED: FAT EMUL IV SCH (17:00)
[2019-03-12] MEDS ORDERED: [UNRECOGNIZED DRUG - OTHER] IV SCH (17:00)
[2019-03-12] MEDS ORDERED: SMOF TPN IV SCH (17:00)
[2019-03-12] MEDS ORDERED: FILTER, DISP 1.2 MICRON FOR TPN/PVN IV PRN (17:00)
[2019-03-12] MEDS ORDERED: INSULIN REGULAR LOW DOSE QDAY SQ-INSULIN SCH (21:00)
[2019-03-13] MEDS: AMPICILLIN/SULBACTAM 3 GM in SODIUM CHLORIDE 0.9% 100 ML IV SCH ×4 (01:30→19:27)
[2019-03-13] MEDS: DEXAMETHASONE 4 MG/ML, 1ML IV SCH ×4 (02:28→20:35)
[2019-03-13] MEDS: HYDROmorphone 2 MG/ML, 1ML IVPush PRN ×3 (04:21→14:41)
[2019-03-13 04:24] VITALS: BP 104/62
[2019-03-13 04:27] LABS: ANION GAP 4 mmol/L (5-15); CALCIUM 8.1 mg/dL (8.5-10.1); CHLORIDE 100 mmol/L (98-107); CREATININE 0.63 mg/dL (0.7-1.3)
[2019-03-13] MEDS: INSULIN REGULAR MEDIUM DOSE QDAY SQ-INSULIN SCH (09:00)
[2019-03-13] MEDS ORDERED: INSULIN REGULAR LOW DOSE Q6H X 48HRS SQ-INSULIN SCH (09:00)
[2019-03-13] MEDS: METHADONE INTENSOL 10 MG/ML ORAL CONC PO SCH ×3 (09:00→20:35)
[2019-03-13] MEDS ORDERED: AMINO ACID 10% IV SCH (17:00)
[2019-03-13] MEDS ORDERED: [UNRECOGNIZED DRUG - OTHER] IV SCH (17:00)
[2019-03-13] MEDS ORDERED: DEXTROSE 70% IV SCH (17:00)
[2019-03-13] MEDS ORDERED: SMOF TPN IV SCH (17:00)
[2019-03-13] MEDS ORDERED: FAT EMUL IV SCH (17:00)
[2019-03-13] MEDS ORDERED: FILTER, DISP 1.2 MICRON FOR TPN/PVN IV PRN (17:00)
[2019-03-14] MEDS: AMPICILLIN/SULBACTAM 3 GM in SODIUM CHLORIDE 0.9% 100 ML IV SCH ×4 (01:53→19:49)
[2019-03-14] MEDS: DEXAMETHASONE 4 MG/ML, 1ML IV SCH ×4 (02:35→21:29)
[2019-03-14] MEDS: HYDROmorphone 2 MG/ML, 1ML IVPush PRN ×3 (03:04→11:56)
[2019-03-14 04:30] LABS: ANION GAP 2 mmol/L (5-15); CALCIUM 8.6 mg/dL (8.5-10.1); CHLORIDE 100 mmol/L (98-107); CREATININE 0.63 mg/dL (0.7-1.3)
[2019-03-14] MEDS: METHADONE INTENSOL 10 MG/ML ORAL CONC PO SCH ×3 (08:33→21:29)
[2019-03-14] MEDS: INSULIN REGULAR MEDIUM DOSE QDAY SQ-INSULIN SCH (08:38)
[2019-03-14 15:28] VITALS: BP 107/74
[2019-03-14 19:20] VITALS: BP 117/61
[2019-03-15 01:45] VITALS: BP 115/85
[2019-03-15] MEDS: AMPICILLIN/SULBACTAM 3 GM in SODIUM CHLORIDE 0.9% 100 ML IV SCH ×4 (01:45→19:35)
[2019-03-15] MEDS: HYDROmorphone 2 MG/ML, 1ML IVPush PRN ×2 (01:57→07:33)
[2019-03-15] MEDS: DEXAMETHASONE 4 MG/ML, 1ML IV SCH (02:46)
[2019-03-15 04:45] LABS: ANION GAP 3 mmol/L (5-15); CHLORIDE 96 mmol/L (98-107); CREATININE 0.63 mg/dL (0.7-1.3)
[2019-03-15 07:39] VITALS: BP 118/72
[2019-03-15] MEDS: METHADONE INTENSOL 10 MG/ML ORAL CONC PO SCH ×3 (09:45→21:41)
[2019-03-15 15:12] VITALS: BP 124/64
[2019-03-15] MEDS ORDERED: SENNOSIDES 8.6 MG TABLET PO PRN (15:30)
[2019-03-15 18:47] VITALS: BP 108/67
[2019-03-16 00:47] VITALS: BP 103/65
[2019-03-16] MEDS: AMPICILLIN/SULBACTAM 3 GM in SODIUM CHLORIDE 0.9% 100 ML IV SCH ×2 (01:28→07:31)
[2019-03-16] MEDS: HYDROmorphone 2 MG/ML, 1ML IVPush PRN (04:42)
[2019-03-16 06:46] VITALS: BP 90/40
[2019-03-16] MEDS ORDERED: ATROPINE OPHTH SOLN 1%, 5ML BC PRN (08:30)
[2019-03-16] MEDS ORDERED: SCOPOLAMINE PATCH, 1.5MG PATCH.TD72 TD PRN (08:30)
[2019-03-16] MEDS ORDERED: LORazepam INTENSOL 2 MG/ML SL PRN (08:30)
[2019-03-16] MEDS: METHADONE INTENSOL 10 MG/ML ORAL CONC PO SCH ×3 (10:01→21:00)
[2019-03-16] MEDS: LORazepam 2 MG/ML, 1ML IVPush PRN (15:13)
[2019-03-17] MEDS: LORazepam 2 MG/ML, 1ML IVPush PRN (04:28)
[2019-03-17] MEDS: METHADONE INTENSOL 10 MG/ML ORAL CONC PO SCH (09:00)
== END 2019-03-17 16:15 | disposition expired | DRG 3 ==
LOC: ED 15:09 → EDIP 16:43 → CCU 19:34 → 4NW 03-14 15:20
PROVIDERS: ADMIT Internal Medicine; ATTEND Internal Medicine
PROC: 30233K1 Transfusion of Nonautologous Frozen Plasma into Peripheral Vein, Percutaneous Approach (ICD-10-PCS; 2019-03-07)
PROC: 0B110F4 Bypass Trachea to Cutaneous with Tracheostomy Device, Open Approach (ICD-10-PCS; principal; 2019-03-07 10:00)
PROC: 03LM3DZ Occlusion of Right External Carotid Artery with Intraluminal Device, Percutaneous Approach (ICD-10-PCS; 2019-03-08)
DX: A41.9 Sepsis, unspecified organism (principal); E43 Unspecified severe protein-calorie malnutrition; I26.99 Other pulmonary embolism without acute cor pulmonale; J69.0 Pneumonitis due to inhalation of food and vomit; J96.00 Acute respiratory failure, unspecified whether with hypoxia or hypercapnia; D68.69 Other thrombophilia; I82.622 Acute embolism and thrombosis of deep veins of left upper extremity; Z68.1 Body mass index [BMI] 19.9 or less, adult; B18.2 Chronic viral hepatitis C; C01 Malignant neoplasm of base of tongue; D64.9 Anemia, unspecified; F17.200 Nicotine dependence, unspecified, uncomplicated; F20.9 Schizophrenia, unspecified; F41.9 Anxiety disorder, unspecified; J32.0 Chronic maxillary sinusitis; G89.29 Other chronic pain; M19.90 Unspecified osteoarthritis, unspecified site; R13.12 Dysphagia, oropharyngeal phase; Z51.5 Encounter for palliative care; Z66 Do not resuscitate; Z53.20 Procedure and treatment not carried out because of patient's decision for unspecified reasons; Z59.0 Homelessness; Z79.01 Long term (current) use of anticoagulants; Z85.810 Personal history of malignant neoplasm of tongue; Z86.711 Personal history of pulmonary embolism; Z86.718 Personal history of other venous thrombosis and embolism; Z92.21 Personal history of antineoplastic chemotherapy; Z92.3 Personal history of irradiation; Z93.0 Tracheostomy status; Z93.1 Gastrostomy status; Z79.899 Other long term (current) drug therapy
CPT/HCPCS: 36415; 74230; 84145; 96361; 96365; 96375; 99285; J3475; J3490; J7042; 31502; 36430; 37243; 61624; 61626; 70491; 71260; 76937; 80048; 80053; 80061; 82962; 83036; 83605; 83735; 84100; 84134; 84439; 84443; 84478; 85025; 85610; 86850; 86900; 87040; 87070; 87081; 87205; 93005; 99156; 99157; C1889; C1894; G0378; J0295; J0610; J0696; J1100; J1170; J1644; J2250; J2270; J2405; J2543; J2704; J3010; J3480; Q9967; 92522-GN; 92523-GN; C1751; C1760; C1769; J1200; J1720; J2060; J2310; J3420; J7030; J7040; P9017